=== PATIENT | female | born 1980 | race Caucasian/White ===

== ENCOUNTER 2017-11-13 13:31 | Emergency (ER) | payer OTHER ==
[~2017-11-13] VITALS: Ht 172.7 cm; Wt 66.1 kg
[~2017-11-13 13:31] MED LIST: FLECTOR 1.3%1 PATC1 TD; FLEXEPAX COMBO1 EACH MC; MOTRIN800 MG PO; NEXIUM20 MG PO; NEXIUM40 MG PO; SILVADENE20 GM TP; WELLBUTRIN XL300 MG PO; ZANAFLEX4 M1 PO
[2017-11-13 15:34] LABS: APPEARANCE CLEAR ((CLEAR)); BILIRUBIN NEGATIVE; BLOOD NEGATIVE; COLOR COLORLESS ((YELLOW)); GLUCOSE (STRIP) NEGATIVE; KETONES NEGATIVE; LEUKOCYTES NEGATIVE; NITRITE NEGATIVE; PROTEIN (STRIP) NEGATIVE; SPECIFIC GRAVITY 1.003 (1.000-1.030); UCUL ADDED? NO; UROBILINOGEN 0.2 MG/DL (0.2-1.0)
[2017-11-13] MEDS ORDERED: MEDROL DOSEPAK4 MG PO (17:37)
[2017-11-13] MEDS ORDERED: LIDODERM 5% P1 PATCH TD (17:37)
[2017-11-13] MEDS ORDERED: NAPROXEN500 MG PO (17:37)
[2017-11-13 17:47] VITALS: BP 110/73
== END 2017-11-13 18:30 | disposition home or self-care (01) ==
LOC: EME 13:31
PROVIDERS: Physician Assistant Medical
DX: M54.5 Low back pain (principal); F17.200 Nicotine dependence, unspecified, uncomplicated
CPT/HCPCS: 81003; 99281; 99284; J1885

== ENCOUNTER 2018-03-03 09:04 | Day surgery (SDC) | payer OTHER ==
[~2018-03-03] VITALS: Ht 171.4 cm; Wt 63.5 kg
[~2018-03-03 09:04] MED LIST changes: +DOK100 M1 PO; +FLEXERIL5 MG PO; +LIDODERM 5% P1 PATCH TD; +MEDROL DOSEPAK4 MG PO; +MIRALAX255 GM PO; +NAPROXEN500 MG PO; +NEURONTIN300 MG PO; +PERCOCET 5/31 TABLET PO; +VENLAFAXINE HC150 M1 PO
== END 2018-03-03 11:00 | disposition home or self-care (01) ==
LOC: PAIN 09:04 → SDC 09:30 → PAIN 09:30
DX: M51.16 Intervertebral disc disorders with radiculopathy, lumbar region (principal); M47.26 Other spondylosis with radiculopathy, lumbar region; F41.9 Anxiety disorder, unspecified; K21.9 Gastro-esophageal reflux disease without esophagitis; M79.1 Myalgia; M53.3 Sacrococcygeal disorders, not elsewhere classified; Z79.891 Long term (current) use of opiate analgesic; F17.200 Nicotine dependence, unspecified, uncomplicated
CPT/HCPCS: J1030; J1100; J2250; J3010